=== PATIENT | female | born 1985 | race Two or more races ===

== ENCOUNTER → 2025-03-01 | Emergency (ER) | payer OTHER ==
[~2025-03-01] VITALS: Ht 170.2 cm; Wt 80.7 kg
[~2025-03-01] MED LIST: NITROFURANTOIN100 MG PO; PRENATA CHEWAB1 EACH
[2025-03-01 16:34] LABS: BASO % 0.3 % (0.1-1.2); EOS # 0.07 (0.04-0.54); EOS % 0.7 % (0.7-7.0); HEMATOCRIT 33.7 % (34.1-44.9); HEMOGLOBIN 11.7 g/dL (11.2-15.7); MONO # 0.84 (0.24-0.82); MONO % 8.8 % (4.7-12.5); NEUT # 6.63 (1.56-6.13); NEUT % 69.8 % (34.0-71.1); PLATELET COUNT 185 K/uL (163-369)
[2025-03-01 17:05] LABS: URINE APPEARANCE Clear; URINE BILIRRUBIN Negative (NEGATIVE); URINE BLOOD Negative; URINE COLOR Yellow; URINE GLUCOSE Negative (NEGATIVE); URINE KETONE Negative (NEGATIVE); URINE LEUKOCYTE Trace; URINE NITRATE Negative; URINE PROTEIN Negative (NEGATIVE)
[2025-03-01 17:08] LABS: URINE EPITHELIAL CELLS 38.2 uL (0.0-38.8); URINE WBC 8.6 uL (0.0-23.2)
== END | disposition home or self-care (01) ==
LOC: ER 12:51
PROVIDERS: General Practice
DX: O20.8 Other hemorrhage in early pregnancy (principal); Z3A.01 Less than 8 weeks gestation of pregnancy; R10.2 Pelvic and perineal pain